=== PATIENT | male | born 1980 | race Caucasian/White ===

== ENCOUNTER 2020-07-22 16:09 | Outpatient (CLI) | payer OTHER, SELFPAY ==
--- NOTE | ~2020-07-22 | US_ITS ---
EXAMINATION: US venous doppler [facility] DATE: 07/22/2020 16:54 INDICATION: Left lower limb swelling. TECHNIQUE: Grayscale ultrasound images without and with compression and Doppler ultrasound images of the left lower extremity veins were obtained. COMPARISON: None. FINDINGS: The visualized portions of left common femoral vein, profunda (deep) femoral vein, femoral vein, popl iteal vein, peroneal veins, posterior tibial veins, and greater saphenous vein outflow are patent. IMPRESSION: 1. No deep venous thrombosis. Reviewed, dictated and finalized at location A.
== END 2020-07-22 16:10 | disposition home or self-care (01) ==
PROVIDERS: PCP Physician Assistant; Visit Provider Physician Assistant
DX: R22.42 Localized swelling, mass and lump, left lower limb (principal)
CPT/HCPCS: 93971

== ENCOUNTER → 2021-11-07 08:39 | Outpatient (CLI) | payer OTHER, SELFPAY ==
[2021-11-07 20:42] LABS: SARS-CoV-2 RNA PCR Negative
== END ==
PROVIDERS: PCP Physician Assistant; Visit Provider Physician Assistant
DX: R68.89 Other general symptoms and signs (principal); Z20.822 Contact with and (suspected) exposure to COVID-19
CPT/HCPCS: C9803; U0003; U0005

== ENCOUNTER → 2023-06-30 10:17 | Outpatient (CLI) | payer BC, SELFPAY ==
--- NOTE | ~2023-06-30 | CT_ITS ---
EXAMINATION: CT abdomen pelvis w con INDICATION: Left lower quadrant pain TECHNIQUE: Computed tomographic images of the abdomen and pelvis were obtained after the administrati on of 100 cc of Omnipaque 350 intravenous contrast. The dose-length product (DLP) was 1774.46 mGy-cm. Automated exposure control and iterative reconstruction technique were employed. COMPARISON: 01/02/2011 FINDINGS: Minimal dependent atelectasis is present in the lung bases. The heart size is normal. The l iver is diffusely low in attenuation when compared with the spleen, consistent with hepatic steatosis . The spleen, pancreas, gallbladder, and adrenal glands are normal. The kidneys are unremarkable. No pathologically enlarged abdominal or pelvic lymph nodes are identified. No free intraperitoneal gas o r evidence of bowel obstruction. The appendix is normal. There are bilateral extrarenal hernias conta ining fat. There is a chronic rory appearance of the small bowel mesentery, nonspecific. There is mi ld lumbar spondylosis. IMPRESSION: 1. No CT correlate for the patient's symptoms. Reviewed, dictated and finalized at location A.
[2023-06-30 10:33] LABS: Estimated Glomerular Filt Rate > 60
== END ==
PROVIDERS: PCP Physician Assistant; Visit Provider Physician Assistant
DX: R10.32 Left lower quadrant pain (principal)
CPT/HCPCS: 74177; Q9967

== ENCOUNTER 2024-05-24 16:13 | Outpatient (CLI) | payer BC, SELFPAY ==
--- NOTE | ~2024-05-24 | XR_ITS ---
Cervical Spine: AP, lateral, oblique, open-mouth views Clinical History: Pain Findings: There is mild reversal of the normal cervical lordosis. No fracture or subluxation seen, bu t the C6-C7 level is somewhat suboptimally visualized. There is mild facet arthropathy in the cervica l spine. Pre-vertebral soft tissues are unremarkable. Impression: Mild facet joint degenerative changes. No other significant abnormality seen. Reviewed, dictated and finalized at location . Impression: Mild facet joint degenerative changes. No other significant abnormality seen.
== END 2024-05-24 16:14 ==
PROVIDERS: PCP Physician Assistant; Visit Provider Physician Assistant
DX: M54.2 Cervicalgia (principal)
CPT/HCPCS: 72050